=== PATIENT | male | born 1955 | race Caucasian/White ===

== ENCOUNTER 2024-06-03 05:31 | Emergency (ER) | payer MEDICARE, BC ==
[~2024-06-03] VITALS: Ht 177.8 cm; Wt 91.8 kg
[2024-06-03 05:36] VITALS: BP 142/88; PULSE 51; RESP 18; TEMP 98; O2SAT 99
[2024-06-03] MEDS: proparacaine 0.5% ophthalmic drops 15ml EACHEYE ONE (07:52)
[2024-06-03] MEDS: fluorescein sod 1mg ophthalmic strip LEFTEYE ONE (07:52)
[2024-06-03] MEDS ORDERED: CIPR2.5D21 LEFTEYE (07:55)
[2024-06-03] MEDS ORDERED: ERYT1OIN6 LEFTEYE (07:55)
== END 2024-06-03 08:04 | disposition home or self-care (01) ==
LOC: ER 05:33
DX: S05.02XA Injury of conjunctiva and corneal abrasion without foreign body, left eye, initial encounter (principal); Z79.2 Long term (current) use of antibiotics; Z79.899 Other long term (current) drug therapy; X58.XXXA Exposure to other specified factors, initial encounter; Y93.89 Activity, other specified; Y92.89 Other specified places as the place of occurrence of the external cause; Y99.8 Other external cause status
CPT/HCPCS: 99283